=== PATIENT | male | born 1975 | race Caucasian/White ===

== ENCOUNTER 2017-12-30 20:59 | Inpatient (IN) | payer BC ==
[2017-12-30 23:55] LABS: ADD MAN DIFF? NO
[2017-12-30 23:57] LABS: BASOPHILS % 0.5 % (0.0-2.0); EOSINOPHILS # 0.2 10^3/ul (0.0-0.5); EOSINOPHILS % 2.4 % (0.0-7.0); HEMATOCRIT 40.6 % (42.0-52.0); HEMOGLOBIN 13.6 g/dl (14.0-18.0); LYMPHOCYTES # 2.7 10^3/ul (0.8-2.9); LYMPHOCYTES % 33.9 % (15.0-51.0); MEAN CORPUSCULAR HEMOGLOBIN 27.1 pg (29.0-33.0); MEAN CORPUSCULAR HGB CONC 33.5 g/dl (32.0-37.0); MEAN PLATELET VOLUME 11.3 fl (7.4-10.4); MONOCYTE # 0.5 10^3/ul (0.3-0.9); MONOCYTES % 6.6 % (0.0-11.0); NEUTROPHIL # 4.5 10^3/ul (1.6-7.5); NEUTROPHILS % 56.5 % (39.0-77.0); PLATELET COUNT 201 10^3/UL (140-415); RED BLOOD COUNT 5.01 10^6/ul (4.70-6.10); RED CELL DISTRIBUTION WIDTH 13.8 % (11.5-14.5)
[2017-12-30 23:57] LABS: WHITE BLOOD COUNT 7.9 10^3/ul (4.8-10.8)
[2017-12-30] MEDS: ONDANSETRON 4 MG INJ IV (23:57)
[2017-12-30] MEDS: morphine 4 MG/ML VIAL IV (23:58)
[2017-12-31 00:19] LABS: ALANINE AMINOTRANSFERASE 51 IU/L (13-69); ALBUMIN 4.7 g/dl (3.3-4.9); ALBUMIN/GLOBULIN RATIO 1.51; ALKALINE PHOSPHATASE 70 IU/L (42-121); ANION GAP 17 (8-16); ASPARTATE AMINO TRANSFERASE 23 IU/L (15-46); BILIRUBIN,INDIRECT 0.1 mg/dl (0-1.1); BILIRUBIN,TOTAL 0.1 mg/dl (0.2-1.3); BLOOD UREA NITROGEN 22 mg/dl (7-20); CALCIUM 9.7 mg/dl (8.4-10.2); CARBON DIOXIDE 27 mmol/L (21-31); CHLORIDE 104 mmol/L (97-110); CREATININE 0.86 mg/dl (0.61-1.24); GLUCOSE 144 mg/dl (70-220); POTASSIUM 4.1 mmol/L (3.5-5.1); SODIUM 144 mmol/L (135-144); TOTAL PROTEIN 7.8 g/dl (6.1-8.1)
[2017-12-31 00:30] LABS: B-TYPE NATRIURETIC PEPTIDE 90 PG/ML (0-125); TROPONIN-I < 0.012 ng/ml (0.00-0.12)
[2017-12-31] MEDS ORDERED: ONDANSETRON 4 MG INJ IV (06:30)
[2017-12-31] MEDS ORDERED: morphine 2 MG INJ IV (06:30)
[2017-12-31] MEDS: ACETAMINOPHEN 325 MG TAB PO ×2 (06:43→17:31)
[2017-12-31 08:12] LABS: ADD MAN DIFF? NO
[2017-12-31 08:15] LABS: WHITE BLOOD COUNT 7.4 10^3/ul (4.8-10.8)
[2017-12-31 08:16] LABS: BASOPHILS % 0.5 % (0.0-2.0); EOSINOPHILS # 0.2 10^3/ul (0.0-0.5); EOSINOPHILS % 2.4 % (0.0-7.0); HEMATOCRIT 40.7 % (42.0-52.0); HEMOGLOBIN 13.4 g/dl (14.0-18.0); LYMPHOCYTES # 2.3 10^3/ul (0.8-2.9); LYMPHOCYTES % 31.6 % (15.0-51.0); MEAN CORPUSCULAR HEMOGLOBIN 26.9 pg (29.0-33.0); MEAN CORPUSCULAR HGB CONC 32.9 g/dl (32.0-37.0); MEAN CORPUSCULAR VOLUME 81.7 fl (82.0-101.0); MEAN PLATELET VOLUME 11.4 fl (7.4-10.4); MONOCYTE # 0.6 10^3/ul (0.3-0.9); MONOCYTES % 7.6 % (0.0-11.0); NEUTROPHIL # 4.3 10^3/ul (1.6-7.5); NEUTROPHILS % 57.8 % (39.0-77.0); PLATELET COUNT 194 10^3/UL (140-415); RED BLOOD COUNT 4.98 10^6/ul (4.70-6.10); RED CELL DISTRIBUTION WIDTH 13.6 % (11.5-14.5)
[2017-12-31 08:48] LABS: CREATINE KINASE 58 IU/L (23-200)
[2017-12-31 08:49] LABS: ANION GAP 17 (8-16); BLOOD UREA NITROGEN 19 mg/dl (7-20); CALCIUM 9.5 mg/dl (8.4-10.2); CARBON DIOXIDE 26 mmol/L (21-31); CHLORIDE 105 mmol/L (97-110); CREATINE KINASE 66 IU/L (23-200); CREATININE 0.77 mg/dl (0.61-1.24); GLUCOSE 127 mg/dl (70-220); POTASSIUM 4.4 mmol/L (3.5-5.1); SODIUM 144 mmol/L (135-144)
[2017-12-31 08:52] LABS: CK INDEX 0.9
[2017-12-31 08:53] LABS: CK-MB 0.54 ng/ml (0.0-2.4); CK-MB 0.69 ng/ml (0.0-2.4); TROPONIN-I < 0.012 ng/ml (0.00-0.12)
[2017-12-31 09:05] LABS: TROPONIN-I < 0.012 ng/ml (0.00-0.12)
[2017-12-31] MEDS ORDERED: NITROGLYCERIN (SL) 0.4 MG TAB SL (11:30)
[2017-12-31] MEDS ORDERED: DEXTROSE 50% 50 ML SYRINGE IV ×2 (12:00)
[2017-12-31] MEDS ORDERED: GLUCOSE GEL 15 GRAM TUBE PO ×2 (12:00)
[2017-12-31] MEDS ORDERED: GLUCOSE GEL 15 GRAM TUBE BUCCAL (12:00)
[2017-12-31] MEDS ORDERED: GLUCAGON 1 MG INJ IM (12:00)
[2017-12-31 13:53] LABS: CREATINE KINASE 61 IU/L (23-200)
[2017-12-31 14:04] LABS: CK INDEX 0.8
[2017-12-31 14:10] LABS: CK-MB 0.47 ng/ml (0.0-2.4); TROPONIN-I < 0.012 ng/ml (0.00-0.12)
[2017-12-31] MEDS: metFORMIN 500 MG TAB PO (17:14)
[2017-12-31 19:20] LABS: TROPONIN-I < 0.012 ng/ml (0.00-0.12)
[2017-12-31] MEDS: METOPROLOL 50 MG TAB PO (21:00)
[2017-12-31] MEDS ORDERED: METOPROLOL 100 MG TAB PO (21:00)
[2017-12-31] MEDS: ISOSORBIDE DINITRATE 10 MG TAB PO (21:00)
[2018-01-01] MEDS: Insulin NOVOLOG SS MILD Algorithm (NPO/TPN/ENTERAL FEEDS) SC ×3 (05:00→13:00)
[2018-01-01] MEDS: metFORMIN 500 MG TAB PO ×2 (07:20→17:08)
[2018-01-01] MEDS: DIPHENHYDRAMINE 50 MG CAP PO (07:42)
[2018-01-01] MEDS: DIAZEPAM 5 MG TAB PO (07:42)
[2018-01-01 07:48] LABS: ADD MAN DIFF? NO
[2018-01-01 07:53] LABS: BASOPHILS % 0.4 % (0.0-2.0); EOSINOPHILS # 0.2 10^3/ul (0.0-0.5); EOSINOPHILS % 2.5 % (0.0-7.0); HEMATOCRIT 41.1 % (42.0-52.0); HEMOGLOBIN 13.9 g/dl (14.0-18.0); LYMPHOCYTES # 2.1 10^3/ul (0.8-2.9); LYMPHOCYTES % 30.7 % (15.0-51.0); MEAN CORPUSCULAR HEMOGLOBIN 27.3 pg (29.0-33.0); MEAN CORPUSCULAR HGB CONC 33.8 g/dl (32.0-37.0); MEAN CORPUSCULAR VOLUME 80.6 fl (82.0-101.0); MEAN PLATELET VOLUME 11.8 fl (7.4-10.4); MONOCYTE # 0.5 10^3/ul (0.3-0.9); MONOCYTES % 6.6 % (0.0-11.0); NEUTROPHILS % 59.7 % (39.0-77.0); PLATELET COUNT 204 10^3/UL (140-415); RED CELL DISTRIBUTION WIDTH 13.3 % (11.5-14.5)
[2018-01-01 07:53] LABS: WHITE BLOOD COUNT 6.8 10^3/ul (4.8-10.8)
[2018-01-01] MEDS ORDERED: INSULIN ASPART [NOVOLOG] 3 ML PEN SC ×2 (07:55→17:25)
[2018-01-01 08:01] LABS: HEMOGLOBIN A1C 6.1 % (0-5.9)
[2018-01-01 08:10] LABS: ANION GAP 19 (8-16); BLOOD UREA NITROGEN 17 mg/dl (7-20); CALCIUM 9.9 mg/dl (8.4-10.2); CARBON DIOXIDE 27 mmol/L (21-31); CHLORIDE 102 mmol/L (97-110); CHOL/HDL RATIO 6.3 RATIO; CHOLESTEROL 204 mg/dl (100-200); CREATININE 0.76 mg/dl (0.61-1.24); GLUCOSE 139 mg/dl (70-220); HDL CHOLESTEROL 32 mg/dl (27-67); LDL CHOLESTEROL,CALCULATED 80 mg/dl; MAGNESIUM 1.8 mg/dl (1.7-2.5); POTASSIUM 4.2 mmol/L (3.5-5.1); SODIUM 144 mmol/L (135-144); TRIGLYCERIDES 461 mg/dl (0-149)
[2018-01-01 08:11] LABS: INR 0.94; PROTIME 12.7 Sec (11.9-14.9)
[2018-01-01] MEDS ORDERED: IODIXANOL LOCM 100 ML BTL ×3 (08:57→10:32)
[2018-01-01] MEDS ORDERED: LIDOCAINE 1% (MDV) 20 ML INJ (08:57)
[2018-01-01] MEDS ORDERED: NITROGLYCERIN (IC) 100 MCG/ML INJ (08:57)
[2018-01-01] MEDS ORDERED: FENTAnyl 50 MCG/ML VIAL (08:57)
[2018-01-01] MEDS ORDERED: HEPARIN 1000 UNITS/ML 10 ML INJ (08:57)
[2018-01-01] MEDS ORDERED: MIDAZOLAM 1 MG/ML 2 ML INJ (08:57)
[2018-01-01] MEDS ORDERED: VERAPAMIL 5 MG INJ (08:57)
[2018-01-01] MEDS: ASPIRIN 81 MG TAB PO (09:00)
[2018-01-01] MEDS: METOPROLOL 50 MG TAB PO ×2 (09:00→20:37)
[2018-01-01] MEDS: CLOPIDOGREL 75 MG TAB NGT (09:00)
[2018-01-01] MEDS: ISOSORBIDE DINITRATE 10 MG TAB PO ×3 (09:00→20:38)
[2018-01-01] MEDS ORDERED: BIVALIRUDIN 250MG /NS 50 ML 50 ML IVPB ×2 (09:53→10:15)
[2018-01-01] MEDS ORDERED: IOHEXOL 350MG/ML 50 ML BTL (10:05)
[2018-01-01] MEDS ORDERED: CLOPIDOGREL 300 MG TAB (11:05)
[2018-01-01] MEDS ORDERED: ASPIRIN 325 MG TAB (11:05)
[2018-01-01] MEDS ORDERED: OXYCODONE/ACETAMINOPHEN (5/325) TAB PO (11:30)
[2018-01-01] MEDS ORDERED: ACETAMINOPHEN 325 MG TAB PO (11:30)
[2018-01-01] MEDS ORDERED: AL HYDROX/MG HYDROX/SIMETH 30 ML CUP PO (11:30)
[2018-01-01] MEDS ORDERED: ONDANSETRON 4 MG INJ IV (11:30)
[2018-01-01] MEDS: SOD CHLORIDE 0.9% 1,000 ML IV (11:58)
[2018-01-01] MEDS: Insulin NOVOLOG SS MILD Algorithm (SS with meals and bedtime) SC ×2 (17:13→20:49)
[2018-01-01] MEDS: ZOLPIDEM 5 MG TAB PO (23:49)
[2018-01-02] MEDS: ACCUCHECK AT 2AM (Patients on SS coverage) XX (02:00)
[2018-01-02 07:44] LABS: ADD MAN DIFF? NO
[2018-01-02 07:50] LABS: WHITE BLOOD COUNT 7.4 10^3/ul (4.8-10.8)
[2018-01-02 07:50] LABS: BASOPHILS % 0.3 % (0.0-2.0); EOSINOPHILS # 0.2 10^3/ul (0.0-0.5); EOSINOPHILS % 2.3 % (0.0-7.0); HEMOGLOBIN 13.9 g/dl (14.0-18.0); LYMPHOCYTES # 1.5 10^3/ul (0.8-2.9); LYMPHOCYTES % 20.2 % (15.0-51.0); MEAN CORPUSCULAR HEMOGLOBIN 26.7 pg (29.0-33.0); MEAN CORPUSCULAR HGB CONC 33.1 g/dl (32.0-37.0); MEAN CORPUSCULAR VOLUME 80.6 fl (82.0-101.0); MEAN PLATELET VOLUME 11.6 fl (7.4-10.4); MONOCYTE # 0.6 10^3/ul (0.3-0.9); MONOCYTES % 8.4 % (0.0-11.0); NEUTROPHILS % 68.5 % (39.0-77.0); PLATELET COUNT 200 10^3/UL (140-415); RED BLOOD COUNT 5.21 10^6/ul (4.70-6.10); RED CELL DISTRIBUTION WIDTH 13.1 % (11.5-14.5)
[2018-01-02] MEDS: metFORMIN 500 MG TAB PO (07:52)
[2018-01-02] MEDS: Insulin NOVOLOG SS MILD Algorithm (SS with meals and bedtime) SC ×2 (07:55→11:38)
[2018-01-02 08:10] LABS: ANION GAP 17 (8-16); BLOOD UREA NITROGEN 13 mg/dl (7-20); CALCIUM 9.4 mg/dl (8.4-10.2); CARBON DIOXIDE 27 mmol/L (21-31); CHLORIDE 104 mmol/L (97-110); CHOL/HDL RATIO 6.6 RATIO; CHOLESTEROL 212 mg/dl (100-200); CREATINE KINASE 64 IU/L (23-200); CREATININE 0.74 mg/dl (0.61-1.24); GLUCOSE 155 mg/dl (70-220); HDL CHOLESTEROL 32 mg/dl (27-67); POTASSIUM 4.3 mmol/L (3.5-5.1); SODIUM 144 mmol/L (135-144)
[2018-01-02 08:23] LABS: TROPONIN-I 0.041 ng/ml (0.00-0.12)
[2018-01-02 08:27] LABS: CK-MB 0.66 ng/ml (0.0-2.4); LDL CHOLESTEROL,CALCULATED 65 mg/dl; TRIGLYCERIDES 575 mg/dl (0-149)
[2018-01-02] MEDS: METOPROLOL 50 MG TAB PO (09:14)
[2018-01-02] MEDS: ISOSORBIDE DINITRATE 10 MG TAB PO ×2 (09:14→13:00)
[2018-01-02] MEDS: ASPIRIN 81 MG TAB PO (09:15)
[2018-01-02] MEDS: CLOPIDOGREL 75 MG TAB NGT (09:15)
[2018-01-11] MEDS ORDERED: INSULIN ASPART [NOVOLOG] 3 ML PEN SC (05:00)
== END 2018-01-02 16:01 | disposition home or self-care (01) | DRG 247 ==
LOC: E/R 20:59 → TEL 12-31 02:40
PROC: 027035Z Dilation of Coronary Artery, One Artery with Two Drug-eluting Intraluminal Devices, Percutaneous Approach (ICD-10-PCS; principal; 2018-01-01 08:52)
PROC: 4A023N7 Measurement of Cardiac Sampling and Pressure, Left Heart, Percutaneous Approach (ICD-10-PCS; 2018-01-01 08:52)
PROC: B211YZZ Fluoroscopy of Multiple Coronary Arteries using Other Contrast (ICD-10-PCS; 2018-01-01 08:52)
DX: I25.110 Atherosclerotic heart disease of native coronary artery with unstable angina pectoris (principal); I25.82 Chronic total occlusion of coronary artery; I24.9 Acute ischemic heart disease, unspecified; I10 Essential (primary) hypertension; Z95.5 Presence of coronary angioplasty implant and graft; E11.9 Type 2 diabetes mellitus without complications; I25.2 Old myocardial infarction; E78.5 Hyperlipidemia, unspecified; F17.200 Nicotine dependence, unspecified, uncomplicated
CPT/HCPCS: 36415; 71045; 80048; 80053; 80061; 82550; 82553; 82962; 83036; 83735; 83880; 84484; 85025; 85610; 93005; 93458; 93567; 96374; 96375; 99285-25